=== PATIENT | male | born 1985 | race Caucasian/White ===

== ENCOUNTER 2021-02-19 01:47 | Emergency (ER) | payer OTHER, SELFPAY ==
[2021-02-19 01:53] VITALS: BP 131/77; PULSE 78; RESP 16; TEMP 37; O2SAT 98; BMI 30.7
--- NOTE | 2021-02-19 02:07 | ED_ITS ---
HPI - Arrhythmia/Palpitations General Chief Complaint: Arrhythmia/Palpitations Stated Complaint: WAS IN SVT PER EMS Time Seen by Provider: 02/19/21 02:07 Source: patient and EMS Mode of arrival: EMS Limitations: no limitations History of Present Illness HPI narrative: 36-year-old male who presents emergency department for evaluation of SVT. The patient states that he is moving from [place] to [place]. He was loading up his truck. He states that he was very tired and not feeling well. His girlfriend was driving the truck when the patient felt his SVT coming on. He states that his heart was beating fast, he felt lightheaded and dizzy as if he is going to pass out. Patient has a known history of SVT and states that this happens to him frequently. Also states that recently his traffic supervisor told him that he also has atrial fibrillation. An ambulance was called when the paramedics arrived on the scene the patient was in an SVT with a rate of 220. The paramedics gave him adenosine 6 mg IV with no effect. The patient then received 12 mg IV which did slow his rate down. The rhythm strip revealed a narrow complex irregularly irregular rhythm which is sped up again to 220. He was then given a 3rd dose of adenosine 12 mg IV and the patient converted to a normal sinus rhythm. Presentation to the emergency department he feels back to his baseline and has no chest pain or palpitations. monitoring manager revealed that he is in a normal sinus rhythm with a rate of 80. Related Data Allergies Allergy/AdvReac Type Severity Reaction Status Date / Time Penicillins [PENICILLINS] Allergy Unknown UNKNOWN Unverified 10/31/19 18:14 bee pollen [BEE STINGS] AdvReac Severe ANAPHYLAXIS Unverified 10/31/19 18:14 Review of Systems Review of Systems: Yes all other systems are reviewed and are negative [facility] Past Medical History [facility] Narrative: Past medical history: SVT and possibly paroxysmal atrial fibrillation. Past surgical history: None. Social history: He denies tobacco use. He denies alcohol use. He occasionally smokes marijuana. Social History Social History Advance Directives: No Physical Exam Vital Signs: Vital Signs: Last Vital Signs Temp 98.6 F 02/19/21 01:53 Pulse 78 02/19/21 01:53 Resp 16 02/19/21 01:53 BP 131/77 02/19/21 01:53 Pulse Ox 98 02/19/21 01:53 BMI result Body Mass Index 30.7 Const: General: cooperative and no acute distress Orientation/consciousness: oriented to person and oriented to place Limitations: no limitations HENMT: Head: Yes normal to inspection, Yes normocephalic and Yes atraumatic Ears: external ears normal General nose exam: Normal external nose present Face and sinus: Yes normal facial exam Mouth: Normal oral and palatal mucosa present Throat: Yes posterior oropharynx normal Eyes: General: appearance normal, both eyes and all related structures Pupils: Equal, round and reactive pupils present Neck: Neck: Yes normal visual inspection, Yes no lymphadenopathy, Yes trachea midline and Yes supple Chest: Chest palpation & inspection: normal inspection of the chest and normal palpation of entire chest wall Resp: Effort & Inspection: normal respiratory effort and able to speak in complete sentences Auscultation: clear to auscultation bilaterally Cardio: Rate: regular rate Rhythm: regular rhythm Heart sounds: S1 normal heart sound present, S2 normal heart sound present and no murmurs GI: Inspection: Yes normal to inspection Palpation (GI): Soft to palpation, nontender and no guarding Auscultation: normal bowel sounds : General: Yes no CVA tenderness Back/Spine/Pelvis: Back: no CVA tenderness Skin: General skin exam: no rashes or lesions noted Neuro: General: oriented to person and oriented to place Cranial nerves: Yes CN's II-XII intact bilaterally and Yes Equal, round and reactive pupils present Cognition (Neuro): normal cognition Motor exam (neuro): 5/5 motor strength present throughout Extrem: General: Yes normal to inspection Psych: Appearance: grossly normal Speech and movement: Normal speech and movement present Affect: normal affect Attitude: cooperative Thought process: Normal thought process present Thought content: Normal thought content present Course Course Course Narrative: 36-year-old male with a history of SVT and possibly new history of paroxysmal atrial fibrillation who presents to emergency department for evaluation of sudden onset of SVT. Census Clerk rhythm strips revealed that the patient had an SVT of 220 beats per minute. The patient received 3 doses of adenosine and did convert to a normal sinus rhythm. At the time evaluation he is asymptomatic and his rhythm strip revealed a normal sinus rhythm with a rate of 80. The patient will be discharged home. He was advised to follow-up with his traffic supervisor and pursue ablation therapy. He was discharged home. Discharge Plan Discharge Clinical Impression: Supraventricular tachycardia Patient Disposition: Home, Self-Care Instructions: Supraventricular Tachycardia (ED) Additional Instructions: Your rhythm strips that the paramedics brought in were consistent with a supraventricular tachycardia (SVT) at 220 beats per minute The paramedics gave you adenosine 6 mg IV, 12 mg IV and 12 mg IV and this caused your SVT to break and you are now in a sinus rhythm. You should discuss getting the ablation therapy with your traffic supervisor. Continue taking medications as prescribed by your providers. Please return to the emergency department if your symptoms get worse or if you develop any symptoms that are concerning to you. Interventions: ED Discharge Assessment Last Done: 02/19/21 02:33 Discharge Date/Time: 02/19/21 02:34
== END 2021-02-19 02:34 | disposition home or self-care (01) ==
LOC: HO.ED 02:21
PROVIDERS: Emergency Provider Emergency Medicine Emergency Medical Services
DX: I47.1 Supraventricular tachycardia (principal); F12.90 Cannabis use, unspecified, uncomplicated
CPT/HCPCS: 99283